=== PATIENT | male | born 1985 | race Caucasian/White ===

== ENCOUNTER 2017-02-25 10:54 | Day surgery (SDC) | payer BC ==
[2017-02-25] MEDS ORDERED: Lactated Ringers 1,000 ML IV SCH (11:00)
[2017-02-25] MEDS ORDERED: Sodium Chloride 0.9% 5 ML Syringe FLUSH PRN (11:00)
[2017-02-25] MEDS ORDERED: Propofol 200 MG/20 ML SDV ONE (11:22)
[2017-02-25] MEDS ORDERED: Midazolam 1 MG/ML 2 ML SDV ONE (11:22)
[2017-02-25] MEDS ORDERED: Midazolam 1 MG/ML 2 ML SDV IV ONE (13:16)
[2017-02-25] MEDS ORDERED: Propofol 200 MG/20 ML SDV IV ONE (13:16)
--- NOTE | 2017-02-25 13:51 | PCM.PN ---
- General Info Date of Service: 02/25/17 - Review of Systems Systems Review Comment:: 31 y/o male here for his first colonoscopy. He has a history of recent episodes of rectal bleeding. He is medically stable to proceed. Risks such as but not limited to bleeding and GI injury discussed and he agrees to proceed. - Patient Data Vitals - Most Recent: Last Vital Signs Temp 97.6 F 02/25/17 11:27 Pulse 62 02/25/17 11:27 Resp 16 02/25/17 11:27 BP 125/68 02/25/17 11:27 Pulse Ox 94 L 02/25/17 11:27 Weight - Most Recent: 87.362 kg Med Orders - Current: Current Medications Lactated Ringer's (Ringers, Lactated) 1,000 mls @ 50 mls/hr IV ASDIRECTED CHETNA Last Admin: 02/25/17 11:41 Dose: 50 mls/hr Sodium Chloride (Syrex Flush) 5 ml FLUSH Q8HR PRN PRN Reason: Keep Vein Open Discontinued Medications Midazolam HCl (Versed 1 Mg/Ml) Confirm Administered Dose 4 mg .ROUTE .STK-MED ONE Stop: 02/25/17 11:23 Propofol (Diprivan 20 Ml) Confirm Administered Dose 400 mg .ROUTE .STK-MED ONE Stop: 02/25/17 11:23 - Problem List Review Problem List Initiated/Reviewed/Updated: Yes - My Orders Last 24 Hours: My Active Orders 02/25/17 11:00 Patient to Empty Bladder [RC] ASDIRECTED Peripheral IV Care [RC] . DIRECTED Verify Patient Consent Obtain [RC] ASDIRECTED Lactated Ringers [Ringers, Lactated] 1,000 ml IV ASDIRECTED Sodium Chloride 0.9% [Syrex Flush] 5 ml FLUSH Q8HR PRN Peripheral IV Insertion Adult [OM.PC] Routine 02/25/17 Breakfast Nothing Per Oral Diet [DIET] - Assessment Assessment:: Rectal Bleeding - Plan Plan:: Colonoscopy
[2017-02-25 14:57] VITALS: BP 110/65
--- NOTE | 2017-02-25 16:38 | PCM.OPNOTE ---
- General Post-Op/Procedure Note Date of Surgery/Procedure: 02/25/17 Operative Procedure(s): Colonoscopy Findings: Moderate sized internal hemorrhoids normal colon Pre Op Diagnosis: Rectal Bleeding Post-Op Diagnosis: Hemorrhoids Anesthesia Technique: MAC Primary Surgeon: Ezequiel Barclay Pathology: none EBL in mLs: 0 Complications: None Condition: Good Free Text/Narrative:: Intake & Output 02/25/17 02/25/17 02/25/17 06:59 14:59 22:59 Intake Total 50 Balance 50
--- NOTE | 2017-02-26 01:35 | OR ---
DATE OF SURGERY: 02/25/2017 SURGEON: Ezequiel Barclay MD REFERRING PROVIDER: MEMO Rosas PREOPERATIVE DIAGNOSIS: Rectal bleeding. POSTOPERATIVE DIAGNOSIS: Hemorrhoids. OPERATION PERFORMED: Colonoscopy. INDICATIONS FOR SURGERY: This 31-year-old male has recently had several episodes of bright red blood per rectum. He is referred for diagnostic colonoscopy. FINDINGS: The patient has mild to moderate degree of internal hemorrhoids. These do not appear to be actively bleeding at this time, although are a potential source of previous bleeding. The patient's colon appears normal. No polyps or other pathology was seen. DESCRIPTION OF PROCEDURE: The patient was taken to the operating room. He was given intravenous sedation and with him in the left lateral decubitus position, digital rectal exam was performed showing no rectal masses. The Olympus colonoscope was inserted into the rectum. Retroflexed examination of the rectal canal was performed. The scope was then carefully advanced under direct visualization through the entire length of the colon until the cecum was reached. Cecal acquisition was confirmed by noting the normal internal cecal anatomy including the appendiceal orifice and ileocecal valve. After carefully examining the cecum, the scope was slowly withdrawn, sequentially reexamining the colonic segments until the entire colon and rectum had been fully examined. The scope was then removed and the patient was taken from the operating room in satisfactory condition. ESTIMATED BLOOD LOSS: Zero. COMPLICATIONS: None. PROGNOSIS: Good. /[id number]/MODL
== END 2017-02-25 14:55 | disposition home or self-care (01) ==
LOC: KA.SDS 10:54
PROVIDERS: ATTEND Surgery
DX: K64.8 Other hemorrhoids (principal); Z79.899 Other long term (current) drug therapy
CPT/HCPCS: 45378; J2250; J2704; J7120

== ENCOUNTER 2017-11-27 18:37 | Emergency (ER) | payer BC ==
[2017-11-27 18:55] VITALS: BP 135/75
--- NOTE | 2017-11-27 19:16 | EDM.PDOC ---
ED HPI GENERAL MEDICAL PROBLEM - General Chief Complaint: General Stated Complaint: concussion after fall last friday Time Seen by Provider: 11/27/17 19:08 Source of Information: Reports: Patient History Limitations: Reports: No Limitations - History of Present Illness INITIAL COMMENTS - FREE TEXT/NARRATIVE: Patient is a 32-year-old gentleman who presents to the emergency department this evening with a complaint of headache, dizziness, nausea and vomiting, confusion, neck stiffness, secondary to a 8-10 foot fall from a tree stand 4 days ago. Patient states that he slipped and fell backwards causing abrasions to both arms and unsure if he struck his head on the tree or on the ground. Patient unsure if he had a temporary loss of consciousness at that time. Since then he's had intermittent episodes of confusion, feeling of cloudiness, headache, and one episode of nausea and vomiting this afternoon. 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 Onset: Gradual Onset Date: 11/23/17 Duration: Day(s): Location: Reports: Head, Neck Quality: Reports: Dull Severity: Mild Improves with: Reports: None Worsens with: Reports: None Context: Reports: Trauma Associated Symptoms: Reports: Nausea/Vomiting. Denies: Fever/Chills - Related Data Allergies Allergy/AdvReac Type Severity Reaction Status Date / Time No Known Drug Allergies Allergy Cannot Verified 11/27/17 18:38 Remember Home Meds: Home Meds Fenofibrate 160 mg PO DAILY 02/12/17 [History] Escitalopram [Lexapro] 20 mg PO DAILY 02/25/17 [History] Dexamethasone 4 mg PO DAILY #5 tablet 11/27/17 [Rx] Rosuvastatin Calcium 10 mg PO DAILY 11/27/17 [History] Past Medical History Other HEENT History: wears contact lenses Cardiovascular History: Reports: High Cholesterol Respiratory History: Reports: Asthma Other Respiratory History: did have an inhaler in the past but was never told that he had asthma Gastrointestinal History: Reports: Chronic Diarrhea Musculoskeletal History: Reports: Fracture Psychiatric History: Reports: Depression Dermatologic History: Reports: Psoriasis - Infectious Disease History Infectious Disease History: Reports: Chicken Pox - Past Surgical History HEENT Surgical History: Reports: Tonsillectomy, Other (See Below) Other HEENT Surgeries/Procedures: [place] teeth removal. Nasal polyp removal in 2014 Musculoskeletal Surgical History: Reports: None Social & Family History - Family History Family Medical History: Noncontributory - Caffeine Use Caffeine Use: Reports: Soda ED ROS GENERAL - Review of Systems Review Of Systems: ROS reveals no pertinent complaints other than HPI. Constitutional: Reports: No Symptoms HEENT: Reports: No Symptoms Respiratory: Reports: No Symptoms Cardiovascular: Reports: No Symptoms Endocrine: Reports: No Symptoms GI/Abdominal: Reports: No Symptoms : Reports: No Symptoms Musculoskeletal: Reports: No Symptoms Skin: Reports: No Symptoms Neurological: Reports: Confusion, Dizziness, Headache Psychiatric: Reports: No Symptoms Hematologic/Lymphatic: Reports: No Symptoms Immunologic: Reports: No Symptoms ED EXAM, GENERAL - Physical Exam Exam: See Below Exam Limited By: No Limitations General Appearance: Alert, WD/WN, No Apparent Distress Eye Exam: Bilateral Eye: Normal Inspection Ears: Normal External Exam, Normal Canal, Hearing Grossly Normal, Normal TMs Ear Exam: Bilateral Ear: Auricle Normal, Canal Normal, TM normal Nose: Normal Inspection, No Blood Throat/Mouth: Normal Inspection, Normal Oropharynx, No Airway Compromise Head: Normocephalic. No: Facial Swelling, Facial Tenderness, Sinus Tenderness Neck: Tender Lateral. No: Lymphadenopathy (L), Lymphadenopathy (R) Respiratory/Chest: No Respiratory Distress, Lungs Clear, Normal Breath Sounds, No Accessory Muscle Use, Chest Non-Tender Cardiovascular: Regular Rate, Rhythm, No Murmur, No Rub GI/Abdominal: Normal Bowel Sounds, Soft, Non-Tender Back Exam: Normal Inspection, Full Range of Motion Extremities: Normal Inspection, Normal Range of Motion, Non-Tender, No Pedal Edema Neurological: Alert, Oriented, CN II-XII Intact, Normal Cognition, No Motor/ Sensory Deficits Psychiatric: Normal Affect, Normal Mood Skin Exam: Warm, Dry, Intact, Normal Color, No Rash Lymphatic: No Adenopathy Course - Vital Signs Last Recorded V/S: Last Vital Signs Temp 97.3 F 11/27/17 18:50 Pulse 74 11/27/17 18:50 Resp 18 11/27/17 18:50 BP 135/75 11/27/17 18:50 Pulse Ox 98 11/27/17 18:50 - Orders/Labs/Meds Orders: Active Orders 24 hr Category Date Time Status Cervical Spine wo Cont [CT] Stat Exams 11/27/17 18:58 Ordered Head wo Cont [CT] Stat Exams 11/27/17 18:58 Ordered - Radiology Interpretation Free Text/Narrative:: CT without contrast of head and cervical spine shows no acute findings CT Results Date: 11/27/17 - Re-Assessments/Exams Free Text/Narrative Re-Assessment/Exam: 11/27/17 19:47 Patient afebrile, nontoxic appearing, vital signs stable. 8 mg of Decadron IM given. Patient will follow-up with PCP in 2-3 days. Departure - Departure Time of Disposition: 19:48 Disposition: Home, Self-Care 01 Condition: Good Clinical Impression: Post concussion syndrome Head injury Qualifiers: Encounter type: initial encounter Qualified Code(s): S09.90XA - Unspecified injury of head, initial encounter - Discharge Information Instructions: Head Injury, Adult, [id number], Post-Concussion Syndrome, Easy- to-Read Referrals: Sarahi Machuca MD [Primary Care Provider] - Additional Instructions: Follow-up at [facility] in the next 2-3 days. Return to emergency department sooner if symptoms continue or worsen. - My Orders Last 24 Hours: My Active Orders 11/27/17 18:58 Cervical Spine wo Cont [CT] Stat Head wo Cont [CT] Stat - Assessment/Plan Last 24 Hours: My Active Orders 11/27/17 18:58 Cervical Spine wo Cont [CT] Stat Head wo Cont [CT] Stat Assessment:: Concussion Plan: Follow-up with PCP in 2-3 days
[2017-11-27] MEDS: Dexamethasone 10 MG/ML SDV IM ONE (20:05)
== END 2017-11-27 20:10 | disposition home or self-care (01) ==
LOC: KA.ED 18:37
DX: S09.90XA Unspecified injury of head, initial encounter (principal); F07.81 Postconcussional syndrome; Z79.899 Other long term (current) drug therapy; W19.XXXA Unspecified fall, initial encounter
CPT/HCPCS: 70450; 72125; 96372; 99283; J1100

== ENCOUNTER 2019-01-23 15:18 | Emergency (ER) | payer BC ==
[2019-01-23] MEDS ORDERED: Ondansetron 4 MG/2 ML SDV IVPUSH ONE (15:56)
[2019-01-23] MEDS ORDERED: HYDROmorphone 1 MG/ML Syringe IVPUSH ONE (15:57)
[2019-01-23] MEDS ORDERED: Iopamidol 755 Mg/ML 75 ML Bottle IVPUSH ONE (16:11)
[2019-01-23] MEDS ORDERED: Sodium Chloride 0.9% 50 ML IV SCH (16:15)
[2019-01-23 16:16] LABS: ANION GAP 15.6 mmol/L (5-15); CHLORIDE,CL 101 mmol/L (98-115); SODIUM,NA 138 mmol/L (136-145)
--- NOTE | 2019-01-23 16:48 | CT ---
[id number] CT/CT Abdomen Pelvis W IV EXAM: ABDOMEN AND PELVIS CT WITH CONTRAST INDICATION: Left lower quadrant abdominal pain. Left lower extremity pain. COMPARISON: None. DISCUSSION: Scattered diverticula of the colon. Wall thickening and adjacent inflammatory changes at the junction of the descending and sigmoid colon compatible with acute diverticulitis. No abscess, free air or free fluid. The liver is prominent in size and demonstrates fatty infiltration. The spleen is mildly enlarged measuring up to 13.4 cm. The gallbladder, pancreas, adrenal glands, kidneys, small bowel and appendix are normal in appearance. The osseous structures are unremarkable. IMPRESSION: 1. Acute uncomplicated diverticulitis of the distal descending colon. Kyle Campoverde MD 01/23/19 [id number] Thank you for allowing us to participate in the care of your patient.
[2019-01-23] MEDS ORDERED: Sulfamethoxazole/Trimethoprim 800-160 MG Tab PO ONE (17:13)
[2019-01-23] MEDS ORDERED: metroNIDAZOLE 500 MG Tab PO ONE (17:15)
[2019-01-23] MEDS ORDERED: Acetaminophen/HYDROcodone 325-5 MG Tab PO ONE (17:16)
--- NOTE | 2019-01-23 17:27 | EDM.PDOC ---
ED HPI GENERAL MEDICAL PROBLEM - General Chief Complaint: Abdominal Pain Stated Complaint: LLL ABD PAIN Time Seen by Provider: 01/23/19 15:30 Source of Information: Reports: Patient, Family () History Limitations: Reports: No Limitations - History of Present Illness INITIAL COMMENTS - FREE TEXT/NARRATIVE: 33-year-old male presents to emergency room with complaints of having 2 hours of abdominal left lower quadrant pain. Patient reports that the onset of his symptoms were gradual and he has a constant ache. Movement particularly riding in a bumpy road or with his work seems to aggravate his left lower quadrant pain. He denies any fever or chills, no vomiting. He's felt nauseous today. His bowel movements have been regular but feels possibly his stools have been darker than normal. He has not experienced any diarrhea. Patient states that he eats approximately 3 pounds of sunflower seeds a week. He has no other complaints such as chest pain shortness of breath, no upper respiratory infection, no cough. He denies any dysuria or hematuria he denies any flank pain. Onset: Gradual Onset Date: 01/21/19 Duration: Day(s):, Constant, Getting Worse Location: Reports: Abdomen Quality: Reports: Ache Severity: Moderate Improves with: Reports: Rest Worsens with: Reports: Movement Associated Symptoms: Reports: Nausea/Vomiting. 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 (see below) Other Treatments EMERGENCY VEHICLE OPERATOR: aleve and other pain medication Left Lower Abdomen Pain Score (Numeric/FACES): 8 - Related Data Allergies Allergy/AdvReac Type Severity Reaction Status Date / Time No Known Drug Allergies Allergy Cannot Verified 01/23/19 15:37 Remember Home Meds: Home Meds Fenofibrate 160 mg PO DAILY 02/12/17 [History] Escitalopram [Lexapro] 20 mg PO DAILY 02/25/17 [History] Rosuvastatin Calcium 10 mg PO DAILY 11/27/17 [History] Fexofenadine HCl [Allergy Relief] 180 mg PO DAILY 01/23/19 [History] Past Medical History HEENT History: Reports: Impaired Vision Other HEENT History: wears contact lenses Cardiovascular History: Reports: High Cholesterol Respiratory History: Reports: Asthma Other Respiratory History: did have an inhaler in the past but was never told that he had asthma Gastrointestinal History: Reports: Chronic Diarrhea Musculoskeletal History: Reports: Fracture Other Musculoskeletal History: right hand Neurological History: Reports: Concussion Other Neuro History: Psychiatric History: Reports: Depression Dermatologic History: Reports: Psoriasis - Infectious Disease History Infectious Disease History: Reports: Chicken Pox - Past Surgical History HEENT Surgical History: Reports: Tonsillectomy, Other (See Below) Other HEENT Surgeries/Procedures: [place] teeth removal. Nasal polyp removal in 2014 Cardiovascular Surgical History: Reports: None Respiratory Surgical History: Reports: None Musculoskeletal Surgical History: Reports: None Other Musculoskeletal Surgeries/Procedures:: surgical repair Social & Family History - Family History Family Medical History: Noncontributory - Tobacco Use Smoking Status *Q: Former Smoker Used Tobacco, but Quit: No - Caffeine Use Caffeine Use: Reports: Coffee, Energy Drinks, Soda - Recreational Drug Use Recreational Drug Use: No ED ROS GENERAL - Review of Systems Review Of Systems: See Below Constitutional: Denies: Fever, Chills HEENT: Reports: No Symptoms Respiratory: Reports: No Symptoms Cardiovascular: Reports: No Symptoms Endocrine: Reports: No Symptoms GI/Abdominal: Reports: Abdominal Pain, Black Stool, Distension, Flatus, Nausea. Denies: Constipation, Diarrhea, Vomiting : Denies: Discharge, Dysuria, Hematuria, Pain, Urgency, Urinary Retention Musculoskeletal: Denies: Back Pain Skin: Reports: No Symptoms Neurological: Reports: No Symptoms Hematologic/Lymphatic: Reports: No Symptoms Immunologic: Reports: No Symptoms ED EXAM, GI/ABD - Physical Exam Exam: See Below Exam Limited By: No Limitations General Appearance: Alert, WD/WN, Mild Distress Eyes: Bilateral: Normal Appearance, EOMI Ears: Hearing Grossly Normal Nose: Normal Inspection Throat/Mouth: Normal Oropharynx, Normal Voice, No Airway Compromise Head: Atraumatic, Normocephalic Neck: Normal Inspection, Supple, Non-Tender, Full Range of Motion Respiratory/Chest: No Respiratory Distress, Lungs Clear, Normal Breath Sounds Cardiovascular: Normal Peripheral Pulses, Regular Rate, Rhythm, No Murmur GI/Abdominal Exam: Normal Bowel Sounds, No Organomegaly, Tender (LLQ). No: Guarding, Rebound Back Exam: Normal Inspection, Full Range of Motion. No: CVA Tenderness (L), CVA Tenderness (R), Muscle Spasm, Paraspinal Tenderness Extremities: Normal Inspection, Normal Range of Motion, Non-Tender, No Pedal Edema Neurological: Alert, Oriented, No Motor/Sensory Deficits Psychiatric: Normal Affect, Normal Mood Skin Exam: Warm, Dry, Intact, Normal Color, No Rash Lymphatic: No Adenopathy Course - Vital Signs Last Recorded V/S: Last Vital Signs Temp 99.6 F 01/23/19 15:34 Pulse 102 H 01/23/19 15:34 Resp 20 01/23/19 15:34 BP 120/58 L 01/23/19 15:34 Pulse Ox 94 L 01/23/19 15:34 - Orders/Labs/Meds Orders: Active Orders 24 hr Category Date Time Status Sodium Chloride 0.9% [Normal Saline] 50 ml Med 01/23/19 16:15 Active IV ASDIRECTED Medication Orders Sodium Chloride (Normal Saline) 50 mls @ 200 mls/hr IV ASDIRECTED CHETNA Last Admin: 01/23/19 16:25 Dose: 200 mls/hr Labs: Laboratory Tests 01/23/19 01/23/19 01/23/19 Range/Units 15:43 15:43 15:55 WBC 11.50 H (5.00-10.00) 10^3/uL RBC 5.05 (4.50-6.00) 10^6/uL Hgb 15.1 (13.0-17.0) g/dL Hct 43.0 (40.0-52.0) % MCV 85.1 (82.0-92.0) fL MCH 29.9 (27.0-31.0) pg MCHC 35.1 (32.0-36.0) g/dL RDW 11.7 (11.5-14.5) % Plt Count 282 (150-400) 10^3/uL MPV 9.1 (7.4-10.4) fL Immature Gran % (Auto) 0.2 (0.0-5.0) % Neut % (Auto) 76.8 H (50.0-70.0) % Lymph % (Auto) 10.5 L (20.0-40.0) % Long % (Auto) 9.8 H (2.0-8.0) % Eos % (Auto) 2.4 (1.0-3.0) % Baso % (Auto) 0.3 (0.0-1.0) % Immature Gran # (Auto) 0.02 (0.00-0.50) 10^3/uL Neut # (Auto) 8.82 H (2.50-7.00) 10^3/uL Lymph # (Auto) 1.21 (1.00-4.00) 10^3/uL Long # (Auto) 1.13 H (0.10-0.80) 10^3/uL Eos # (Auto) 0.28 (0.10-0.30) 10^3/uL Baso # (Auto) 0.04 (0.00-0.10) 10^3/uL Sodium 138 (136-145) mmol/L Potassium 4.5 (3.3-5.3) mmol/L Chloride 101 (98-115) mmol/L Carbon Dioxide 25.9 (21.0-32.0) mmol/L Anion Gap 15.6 H (5-15) mmol/L BUN 16 (6-25) mg/dL Creatinine 0.75 (0.51-1.17) mg/dL Est Cr Clr Drug Dosing 126.42 mL/min Estimated GFR (MDRD) > 60 mL/min Glucose 93 (75 - 99) mg/dL Calcium 9.5 (8.7-10.3) mg/dL Specimen Type Urincc Urine Color Yellow (YELLOW) Urine Appearance Slightly cloudy H (CLEAR) Urine pH 7.0 (5.0-9.0) Ur Specific [place] 1.020 (1.005-1.030) Urine Protein Negative (NEGATIVE) mg/dL Urine Glucose (UA) Negative (NEGATIVE) mg/dL Urine Ketones Negative (NEGATIVE) mg/dL Urine Occult Blood Negative (NEGATIVE) Urine Nitrite Negative (NEGATIVE) Urine Bilirubin Negative (NEGATIVE) Urine Urobilinogen 2.0 H (0.2-1.0) E.U./dL Ur Leukocyte Esterase Negative (NEGATIVE) Urine RBC Not seen (0-5) /HPF Urine WBC 0-5 (0-5) /HPF Ur Epithelial Cells Not seen /LPF Amorphous Sediment Many H (0/HPF) /HPF Urine Bacteria Occasional (NONE TO FEW) /HPF Meds: Medications Generic Name Dose Route Start Last Admin Trade Name Freq PRN Reason Stop Dose Admin Sodium Chloride 50 mls @ 200 mls/hr 01/23/19 16:15 01/23/19 16:25 Normal Saline IV 200 mls/hr ASDIRECTED CHETNA Administration Discontinued Medications Generic Name Dose Route Start Last Admin Trade Name Jose Angel PRN Reason Stop Dose Admin Hydrocodone Bitart/Acetaminophen 9 tab 01/23/19 17:16 01/23/19 17:42 [place] 325-5 Mg PO 01/23/19 17:17 9 tab ONETIME ONE Administration Hydromorphone HCl 1 mg 01/23/19 15:57 01/23/19 16:25 Dilaudid IVPUSH 01/23/19 15:58 1 mg ONETIME ONE Administration Iopamidol 75 ml 01/23/19 16:11 01/23/19 16:25 Isovue-370 (76%) IVPUSH 01/23/19 16:12 75 ml ONETIME ONE Administration Metronidazole 3,000 mg 01/23/19 17:15 01/23/19 17:41 Flagyl PO 01/23/19 17:16 3,000 mg ONETIME ONE Administration Ondansetron HCl 4 mg 01/23/19 15:56 01/23/19 16:22 Zofran IVPUSH 01/23/19 15:57 4 mg ONETIME ONE Administration Ondansetron HCl 16 mg 01/23/19 17:40 Zofran Odt PO 01/23/19 17:41 ONETIME ONE Trimethoprim/Sulfamethoxazole 4 tab 01/23/19 17:13 01/23/19 17:41 Septra Ds PO 01/23/19 17:14 4 tab ONETIME ONE Administration - Radiology Interpretation Free Text/Narrative:: CT abdomen with IV contrast Discussion: Scattered diverticuli of the colon. Wall thickening and adjacent inflammatory changes at the junction of the descending and sigmoid colon compatible with acute diverticulitis. No abscess, free air or free fluid. The liver is predominant in size and demonstrates fatty infiltration. The spleen is mildly enlarged measuring up to 13.4 cm. The gallbladder, pancreas, adrenal glands, kidneys, small bowel and appendix are normal in appearance. The osseous structures are unremarkable Impression: 1. Acute uncomplicated diverticulitis of the distal descending colon. CT Results Date: 01/23/19 Departure - Departure Time of Disposition: 18:00 Disposition: Home, Self-Care 01 Condition: Good Clinical Impression: Diverticulitis - Discharge Information Instructions: Diverticulitis, [id number] Referrals: Gulsvig,Liane, PA-C [Primary Care Provider] - Forms: ED Department Discharge - My Orders Last 24 Hours: My Active Orders 01/23/19 16:15 Sodium Chloride 0.9% [Normal Saline] 50 ml IV ASDIRECTED - Assessment/Plan Last 24 Hours: My Active Orders 01/23/19 16:15 Sodium Chloride 0.9% [Normal Saline] 50 ml IV ASDIRECTED Assessment:: Uncomplicated diverticulitis Plan: 1. Bactrim DS 1 by mouth twice a day 10 days 2. Metronidazole 100 mg by mouth every 6 hours 10 days 3. [place] 5/325mg one by mouth every 6 hours when necessary for pain. 4. Colace 100 mg twice a day for stool softener. 5. Bowel rest, full liquid diet yogurts, fruits. 6. Oral hydration and avoid caffeinated beverages 7. No seeds including sunflower seeds. 8. Follow-up Dr. Sarahi Yeh next week 9. Return or severe onset of abdominal pain or fevers associated with abdominal pain should return back to the emergency room for further evaluation.
[2019-01-23] MEDS ORDERED: Ondansetron 4 MG Tab.DIS PO ONE (17:40)
[2019-01-23 18:16] VITALS: BP 98/42; PULSE 83
== END 2019-01-23 18:00 | disposition home or self-care (01) ==
LOC: KA.ED 15:18
DX: K57.32 Diverticulitis of large intestine without perforation or abscess without bleeding (principal); E78.00 Pure hypercholesterolemia, unspecified; F32.9 Major depressive disorder, single episode, unspecified; J45.909 Unspecified asthma, uncomplicated; Z79.899 Other long term (current) drug therapy
CPT/HCPCS: 74177; 80048; 81001; 85025; 96374; 96375; 99284; A9270; J1170; J2405; J7050; Q9967